=== PATIENT | male | born 1940 | race Hispanic/Latino ===

== ENCOUNTER 2017-01-06 19:17 | Emergency (ER) | payer MEDICARE ==
[2017-01-06] MEDS ORDERED: Famotidine/PF 20 mg/2ml Vial ONE (20:02)
[2017-01-06] MEDS ORDERED: Metoclopramide HCl 10 MG/2 ML VIAL ONE (20:02)
[2017-01-06] MEDS ORDERED: Sodium Chloride 0.9% 1,000 ML ONE (20:02)
--- NOTE | 2017-01-06 20:38 | RAD ---
TWO VIEWS OF THE CHEST 01/06/17 COMPARISON: None. HISTORY: Difficulty swallowing, patient reports feeling something stuck in the throat for a few hours. FINDINGS: There is no pneumothorax, pleural fluid, focal consolidation, or alveolar edema. No radiopaque forei gn body is noted. No acute osseous abnormality. IMPRESSION: No focal consolidation or alveolar edema. POS: [facility]
--- NOTE | 2017-01-06 20:57 | CT ---
NECK CT WITHOUT CONTRAST 01/06/17 COMPARISON: None. HISTORY: Difficulty swallowing. TECHNIQUE: Serial axial CT imaging at 2.5 mm intervals from the skull base through the lung apices without cont rast. Coronal and sagittal reformatted imaging obtained. FINDINGS: The lack of IV contrast limits assessment of the mucosal structures of the aerodigestive tract, the vascular structures, and for lymphadenopathy. Imaged brain parenchyma appears grossly unremarkable as does the parapharyngeal fat, the retroantral fat, the submandibular glands, and the parotid glands bilaterally. Motion artifact limits assessmen t of the supraglottic airway, specifically in the region of the epiglottis and the pre-epiglottic fa t. The airway is patent with no evidence for narrowing or deviation. The hyoid bone, thyroid cartila ge, and cricoid cartilage appear grossly unremarkable, limited in assessment secondary to motion. No discrete tonsillar abnormality is noted on either side. The piriform sinuses and the vallecula appe ar grossly unremarkable. No radiopaque foreign body is appreciated. There is scattered degenerative changes involving the cervical spine, primarily involving facet join ts and uncovertebral joints, left greater than right. No acute osseous abnormality is evident. IMPRESSION: No radiopaque foreign body seen. POS: [facility]
== END 2017-01-06 21:35 | disposition home or self-care (01) ==
LOC: NAV ERS 19:17
DX: T18.128A Food in esophagus causing other injury, initial encounter (principal); I10 Essential (primary) hypertension; E11.9 Type 2 diabetes mellitus without complications; E78.5 Hyperlipidemia, unspecified
CPT/HCPCS: 70490; 71020; 96361; 96374; 96375; J2765; J7050; S0028